=== PATIENT | female | born 1985 | race African-American/Black ===

== ENCOUNTER → 2017-01-06 11:19 | Outpatient (CLI) | payer OTHER ==
[2015-06-28 12:43] VITALS: BMI 26.3
[~2017-01-06 11:19] MED LIST: FERROUS SULFAT325 MG PO; HYDROCODONE-APA1 TAB PO; IBUPROFEN600 MG PO; PRENATAL COMPLE1 TAB PO
== END | disposition home or self-care (01) ==
LOC: D.US 11:19
DX: O36.0190 Maternal care for anti-D [Rh] antibodies, unspecified trimester, not applicable or unspecified (principal)

== ENCOUNTER → 2017-01-20 12:05 | Outpatient (CLI) | payer OTHER ==
[2015-06-28 12:43] VITALS: BMI 26.3
== END | disposition home or self-care (01) ==
LOC: D.US 12:05
DX: O36.0190 Maternal care for anti-D [Rh] antibodies, unspecified trimester, not applicable or unspecified (principal); O99.019 Anemia complicating pregnancy, unspecified trimester

== ENCOUNTER → 2017-02-10 12:12 | Outpatient (CLI) | payer OTHER ==
[2015-06-28 12:43] VITALS: BMI 26.3
== END | disposition home or self-care (01) ==
LOC: D.US 12:12
DX: O36.0190 Maternal care for anti-D [Rh] antibodies, unspecified trimester, not applicable or unspecified (principal); D64.9 Anemia, unspecified